=== PATIENT | female | born 1965 | race Hispanic/Latino ===

== ENCOUNTER 2018-12-19 08:49 | Outpatient (CLI) | payer MEDICARE, OTHER | END 2018-12-19 08:50 | disposition home or self-care (01) | LOC: RAD 08:49 | DX: N93.0 Postcoital and contact bleeding (principal); N95.0 Postmenopausal bleeding ==

== ENCOUNTER 2019-01-02 07:40 | Outpatient (CLI) | payer MEDICARE, OTHER | END 2019-01-02 07:41 | disposition home or self-care (01) | LOC: RAD 07:40 ==